=== PATIENT | male | born 1970 | race American Indian/Alaskan Native ===

== ENCOUNTER 2016-12-17 10:21 | Emergency (ER) | payer OTHER ==
[2016-12-17 10:50] LABS: Urine Drugs of Abuse Note Disclamer
[2016-12-17 10:54] LABS: Basophils % (Auto) 0.3 % (0.0-1.8); Eosinophils % (Auto) 0.7 % (0.0-4.3); Hemoglobin 14.2 gm/dl (11.8-15.2); Mean Corpuscular HGB Conc 34 % (32-34); Mean Corpuscular Hemoglobin 27 pg (28-32); Mean Corpuscular Volume 81 fl (84-94); Platelet Count 205 K/mm3 (140-440); Red Blood Count 5.17 M/mm3 (3.65-5.03); Red Cell Distribution Width 14.2 % (13.2-15.2); White Blood Count 9.4 K/mm3 (4.5-11.0)
[2016-12-17 11:02] LABS: Bilirubin,Urine NEG (Negative); Blood,Urine NEG (Negative); Ketones,Urine TR mg/dL (Negative); Leukocyte Esterase,Urine NEG (Negative); Mucus,Urine 2+ /HPF; Nitrite,Urine NEG (Negative); Protein,Urine <15 mg/dL mg/dL (Negative); Urobilinogen,Urine < 2.0 mg/dL (<2.0)
--- NOTE | 2016-12-17 11:21 | Emergency Department Report ---
ED Psych HPI - General Chief Complaint: Psych Stated Complaint: SUICIDAL Time Seen by Provider: 12/17/16 11:20 Source: EMS Mode of arrival: Ambulatory - History of Present Illness Initial Comments: The patient arrived at triage ambulatory. According to the note at triage she is "suicidal after 1 day without psych meds.". I'm unable to obtain very much information from this patient. He is largely now nonverbal. He does nod his head indicating that he is homeless. He really won't speak more than a few unintelligible words in a very low voice. MD Complaint: suicidal ideation, feels depressed -: unknown Associated Psychiatric Symptoms: other (nods yes to hallucinations) - Related Data Home Medications Medication Instructions Recorded Confirmed Last Taken Haloperidol [Haldol] 5 mg PO BID 09/11/13 09/11/13 Unknown Allergies Allergy/AdvReac Type Severity Reaction Status Date / Time shellfish derived Allergy Swelling Verified 09/11/13 13:41 ED Review of Systems ROS: Stated complaint: SUICIDAL Other details as noted in HPI Comment: Unobtainable due to pts medical conditions ED Past Medical Hx - Past Medical History Hx Psychiatric Treatment: Yes (bipolar, schizo) - Social History Smoking Status: Current Every Day Smoker Substance Use Type: None - Medications Home Medications: Home Medications Medication Instructions Recorded Confirmed Last Taken Type Haloperidol [Haldol] 5 mg PO BID 09/11/13 09/11/13 Unknown History ED Physical Exam - General Limitations: Other (psychiatric disorder) General appearance: alert, in no apparent distress - Head Head exam: Present: atraumatic, normocephalic - Eye Eye exam: Present: normal appearance. Absent: scleral icterus - ENT ENT exam: Present: mucous membranes moist - Neck Neck exam: Present: normal inspection. Absent: meningismus - Respiratory Respiratory exam: Present: normal lung sounds bilaterally. Absent: respiratory distress - Cardiovascular Cardiovascular Exam: Present: regular rate, normal rhythm. Absent: systolic murmur, diastolic murmur, rubs, gallop - GI/Abdominal GI/Abdominal exam: Present: soft, normal bowel sounds. Absent: distended, tenderness, guarding, rebound, rigid - Rectal Rectal exam: Present: deferred - Extremities Exam Extremities exam: Present: normal inspection - Back Exam Back exam: Present: normal inspection - Neurological Exam Neurological exam: Present: CN II-XII intact (as testable), other (unwilling to cooperate). Absent: motor sensory deficit - Psychiatric Psychiatric exam: Present: normal mood, flat affect - Skin Skin exam: Present: warm, dry, intact, normal color. Absent: rash ED Course - Reevaluation(s) Reevaluation #1: I discussed the patient's presentation with the mental health counselor. They recommended 1013. I am going to sign the appropriate forms. I'm told that the psychiatrist will be seeing this patient this afternoon. Therefore he will be on a 1013 and mental health hold. I'm going to prescribed Geodon both orally and IM as needed for agitation. 12/17/16 13:36 ED Medical Decision Making - Lab Data Result diagrams: 12/17/16 10:39 12/17/16 10:39 Laboratory Results - last 24 hr 12/17/16 12/17/16 10:28 10:39 WBC 9.4 RBC 5.17 H Hgb 14.2 Hct 42.0 MCV 81 L MCH 27 L MCHC 34 RDW 14.2 Plt Count 205 Lymph % (Auto) 5.2 L [place] % (Auto) 5.3 Eos % (Auto) 0.7 Baso % (Auto) 0.3 Lymph # 0.5 L [place] # 0.5 Eos # 0.1 Baso # 0.0 Seg Neutrophils % 88.5 H Seg Neutrophils # 8.3 H Urine Bilirubin Neg Urine RBC (Auto) 1.0 U Epithel Cells (Auto) 1.0 Laboratory Results - last 24 hr 12/17/16 12/17/16 12/17/16 10:28 10:28 10:39 WBC RBC Hgb Hct MCV MCH MCHC RDW Plt Count Lymph % (Auto) [place] % (Auto) Eos % (Auto) Baso % (Auto) Lymph # [place] # Eos # Baso # Seg Neutrophils % Seg Neutrophils # Sodium 142 Potassium 3.6 Chloride 100.0 Carbon Dioxide 22 Anion Gap 24 BUN 11 Creatinine 0.9 Estimated GFR > 60 BUN/Creatinine Ratio 12.22 Glucose 176 H Calcium 9.6 Urine Color Yellow Urine Turbidity Clear Urine pH 5.0 Ur Specific [place] 1.017 Urine Protein <15 mg/dl Urine Glucose (UA) Neg Urine Ketones Tr Urine Blood Neg Urine Nitrite Neg Urine Bilirubin Neg Urine Urobilinogen < 2.0 Ur Leukocyte Esterase Neg Urine WBC (Auto) 3.0 Urine RBC (Auto) 1.0 U Epithel Cells (Auto) 1.0 Urine Mucus 2+ Urine Opiates Screen Presumptive negative Urine Methadone Screen Presumptive negative Ur Barbiturates Screen Presumptive negative Ur Phencyclidine Scrn Presumptive negative Ur Amphetamines Screen Presumptive negative U Benzodiazepines Scrn Presumptive negative Urine Cocaine Screen Presumptive negative U Marijuana (THC) Screen Presumptive negative Drugs of Abuse Note Disclamer Plasma/Serum Alcohol 12/17/16 12/17/16 10:39 10:39 WBC 9.4 RBC 5.17 H Hgb 14.2 Hct 42.0 MCV 81 L MCH 27 L MCHC 34 RDW 14.2 Plt Count 205 Lymph % (Auto) 5.2 L [place] % (Auto) 5.3 Eos % (Auto) 0.7 Baso % (Auto) 0.3 Lymph # 0.5 L [place] # 0.5 Eos # 0.1 Baso # 0.0 Seg Neutrophils % 88.5 H Seg Neutrophils # 8.3 H Sodium Potassium Chloride Carbon Dioxide Anion Gap BUN Creatinine Estimated GFR BUN/Creatinine Ratio Glucose Calcium Urine Color Urine Turbidity Urine pH Ur Specific [place] Urine Protein Urine Glucose (UA) Urine Ketones Urine Blood Urine Nitrite Urine Bilirubin Urine Urobilinogen Ur Leukocyte Esterase Urine WBC (Auto) Urine RBC (Auto) U Epithel Cells (Auto) Urine Mucus Urine Opiates Screen Urine Methadone Screen Ur Barbiturates Screen Ur Phencyclidine Scrn Ur Amphetamines Screen U Benzodiazepines Scrn Urine Cocaine Screen U Marijuana (THC) Screen Drugs of Abuse Note Plasma/Serum Alcohol < 0.01 Critical care attestation.: If time is entered above; I have spent that time in minutes in the direct care of this critically ill patient, excluding procedure time. 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
[2016-12-17 11:37] LABS: Anion Gap 24 mmol/L; BUN/Creatinine Ratio 12.22; Blood Urea Nitrogen 11 mg/dL (9-20); Calcium 9.6 mg/dL (8.4-10.2); Carbon Dioxide 22 mmol/L (22-30); Glucose 176 mg/dL (75-100); Potassium 3.6 mmol/L (3.6-5.0); Sodium 142 mmol/L (137-145)
[2016-12-17] MEDS ORDERED: TYLENOL PO PRN (13:39)
[2016-12-17] MEDS ORDERED: MILK OF MAGNESIA PO PRN (13:39)
[2016-12-17] MEDS ORDERED: GEODON IM PRN (13:39)
[2016-12-17] MEDS ORDERED: ALUM-MAG HYDROX-SIMETH 200-200-20MG/5ML PO PRN (13:39)
[2016-12-17] MEDS: GEODON PO SCH ×2 (16:24→22:01)
[2016-12-18] MEDS: GEODON PO SCH ×2 (01:02→12:41)
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
[2016-12-18] MEDS: HALDOL PO SCH (16:55)
[2016-12-18] MEDS: ATIVAN PO SCH ×2 (16:55→20:14)
[2016-12-19] MEDS: HALDOL PO SCH ×2 (00:30→11:36)
[2016-12-19] MEDS: ATIVAN PO SCH ×3 (09:56→20:15)
--- NOTE | 2016-12-19 13:26 | Progress Note ---
Subjective - Reason for Consult Reason for consult: withdrawn and depressed, non-verbal Mental Status Exam - Vital signs Last Vital Signs Temp 98.0 F 12/19/16 08:53 Pulse 88 12/19/16 08:53 Resp 16 12/19/16 08:55 BP 111/68 12/19/16 08:53 Pulse Ox 99 12/19/16 08:55 Assessment and Plan On clinical examination today, patient was fairly withdrawn and sedated. Patient refused to be interviewed and pulled the sheets over his head upon approach. MENTAL STATUS EXAM: General Appearance: Malodorous and disheveled in hospital gown Sensorium/Consciousness: Minimally responsive, still sedated Eye Contact: limited Attitude / Behavior: Guarded and uncooperative Psychomotor & Musculoskeletal Activity: Cannot assess Mood: Withdrawn Affect: Blunted Speech / Language: Could not assess Thought Processes: Could not assess Thought Content: Unable to report Perception: Could not appropriately assess Orientation: person Judgment What would you do if you smelled smoke in a crowded movie theater?: Limited Insight: poor Intelligence Vocabulary, general fund of knowledge, educational level : Below Average Capacity of ADLs: Dependent INITIAL PLAN OF CARE AND TREATMENT GOALS: Continue haloperidol 5 mg every 12 hours CPK was mildly elevated but not clinically significant. No intervention needed at this current time continue lorazepam 1 mg po tid and reassess clinical presentation
[2016-12-20] MEDS: HALDOL PO SCH (00:30)
[2016-12-20] MEDS: ATIVAN PO SCH ×2 (08:00→21:45)
--- NOTE | 2016-12-20 13:57 | Progress Note ---
Subjective - Reason for Consult Reason for consult: evaluate the need to transfer to inpatient psychiatic hospital Mental Status Exam - Vital signs Last Vital Signs Temp 98.3 F 12/19/16 22:00 Pulse 97 H 12/19/16 22:00 Resp 18 12/19/16 22:00 BP 126/89 12/19/16 22:00 Pulse Ox 97 12/19/16 22:00 Assessment and Plan On clinical examination today, patient was fairly withdrawn , much less sedated. Patient was attempting to sleep but was easily arousable and had a brief conversation 2 today. An initial conversation., The patient was reticent to be discharged to a [place] facility. At the current time, patient notes that his mood is so withdrawn and that he would like to have his mood improved prior to discharge. On a subsequent conversation, patient is amenable to discharging to a [place] health care facility if necessary; however, patient is still fairly withdrawn and does not believe this is the best treatment option for him at the current moment. Therefore, we will continue to engage in referring the patient to inpatient psychiatric services to better manage his current presentation. Nevertheless, patient improves markedly over the next 24 hours it is feasible that he may be discharged to a [place] health care facility. MENTAL STATUS EXAM: General Appearance: Malodorous and disheveled in hospital gown Sensorium/Consciousness: Minimally responsive Eye Contact: limited Attitude / Behavior: Guarded, but cooperative Psychomotor & Musculoskeletal Activity: WNL Mood: Withdrawn Affect: Constricted Speech / Language: WNL Thought Processes: more organized Thought Content: still some hopelessness Perception: no AHV noted Orientation: person, place, situation Judgment What would you do if you smelled smoke in a crowded movie theater?: Limited Insight: fair Intelligence Vocabulary, general fund of knowledge, educational level: Average Capacity of ADLs: Dependent INITIAL PLAN OF CARE AND TREATMENT GOALS: Continue haloperidol 5 mg every 12 hours continue lorazepam 1 mg po tid and reassess clinical presentation Continue the referral process for inpatient psychiatric hospitalization
[2016-12-21] MEDS: HALDOL PO SCH ×3 (03:20→23:52)
[2016-12-21] MEDS: ATIVAN PO SCH ×3 (11:16→20:28)
--- NOTE | 2016-12-21 12:33 | Progress Note ---
Subjective - Reason for Consult Reason for consult: depressed Mental Status Exam - Vital signs Last Vital Signs Temp 98.2 F 12/21/16 08:27 Pulse 79 12/21/16 08:27 Resp 18 12/21/16 08:27 BP 119/87 12/21/16 08:27 Pulse Ox 98 12/21/16 08:27 Assessment and Plan On clinical examination today, and somewhat withdrawn. Patient was asleep upon initial clinical approach. Patient is report that he is doing somewhat better. Auditory hallucinations have decreased. Patient is currently homeless and having difficulty with idea of going to detention upon discharge. At the current time were attending [facility] inpatient placement for the patient if possible. MENTAL STATUS EXAM: General Appearance: Malodorous and disheveled in hospital gown Sensorium/Consciousness: Minimally responsive Eye Contact: limited Attitude / Behavior: Guarded, but cooperative Psychomotor & Musculoskeletal Activity: WNL Mood: Withdrawn Affect: Constricted Speech / Language: WNL Thought Processes: more organized Thought Content: still somewhat hopelessness Perception: no AHV noted Orientation: person, place, situation Judgment What would you do if you smelled smoke in a crowded movie theater?: Limited Insight: fair Intelligence Vocabulary, general fund of knowledge, educational level: Average Capacity of ADLs: Independent INITIAL PLAN OF CARE AND TREATMENT GOALS: Continue haloperidol 5 mg every 12 hours continue lorazepam 1 mg po tid Continue the referral process for inpatient psychiatric hospitalization Possible referral to detention tomorrow if his progress continues
[2016-12-22] MEDS: ATIVAN PO SCH ×3 (11:27→22:00)
[2016-12-22] MEDS: HALDOL PO SCH (13:37)
[2016-12-23] MEDS: ATIVAN PO SCH ×3 (09:20→23:56)
--- NOTE | 2016-12-23 12:44 | Progress Note ---
Subjective - Reason for Consult Reason for consult: depression Mental Status Exam - Vital signs Last Vital Signs Temp 98.4 F 12/23/16 08:00 Pulse 69 12/23/16 08:00 Resp 16 12/23/16 08:00 BP 126/84 12/23/16 08:00 Pulse Ox 100 12/23/16 08:00 Assessment and Plan On clinical examination today, and somewhat withdrawn. Again today, the patient notes that he would rather go to inpatient psychiatric hospitalization rather than prison. Patient has no firm plan of how to address his psychiatric symptoms with follow-up care due to him being homeless. MENTAL STATUS EXAM: General Appearance: Malodorous and disheveled in hospital gown Sensorium/Consciousness: Minimally responsive Eye Contact: limited Attitude / Behavior: Guarded, but cooperative Psychomotor & Musculoskeletal Activity: WNL Mood: Withdrawn Affect: Constricted Speech / Language: WNL Thought Processes: more organized Thought Content: still somewhat hopelessness Perception: no AHV noted Orientation: person, place, situation Judgment What would you do if you smelled smoke in a crowded movie theater?: Limited Insight: fair Intelligence Vocabulary, general fund of knowledge, educational level: Average Capacity of ADLs: Independent INITIAL PLAN OF CARE AND TREATMENT GOALS: Patient has been accepted to inpatient psychiatric hospital and will likely be transported there today Continue haloperidol 5 mg every 12 hours continue lorazepam 1 mg po tid Continue the referral process for inpatient psychiatric hospitalization
[2016-12-23] MEDS: HALDOL PO SCH ×2 (12:51→15:45)
[2016-12-24] MEDS: HALDOL PO SCH ×2 (06:01→13:32)
[2016-12-24] MEDS: ATIVAN PO SCH ×2 (08:19→13:39)
[2016-12-24 18:49] VITALS: BP 138/84
== END 2016-12-24 18:51 ==
LOC: EEVIPCON 10:21 → ED 10:21
DX: F20.2 Catatonic schizophrenia (principal); F31.9 Bipolar disorder, unspecified; F17.200 Nicotine dependence, unspecified, uncomplicated; Z79.899 Other long term (current) drug therapy; Z91.013 Allergy to seafood
CPT/HCPCS: 36415; 80048; 80307; 81001; 82550; 85025; 96372; 99285; G0480; J3486; 80320

== ENCOUNTER 2017-02-07 11:13 | Emergency (ER) | payer OTHER ==
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
[2017-02-07 11:56] LABS: Urine Drugs of Abuse Note Disclamer
[2017-02-07 12:01] LABS: Basophils % (Auto) 1.2 % (0.0-1.8); Eosinophils % (Auto) 3.4 % (0.0-4.3); Hematocrit 38.4 % (35.5-45.6); Hemoglobin 12.8 gm/dl (11.8-15.2); Mean Corpuscular HGB Conc 34 % (32-34); Mean Corpuscular Hemoglobin 27 pg (28-32); Mean Corpuscular Volume 81 fl (84-94); Platelet Count 148 K/mm3 (140-440); Red Blood Count 4.75 M/mm3 (3.65-5.03); Red Cell Distribution Width 15.3 % (13.2-15.2); White Blood Count 3.8 K/mm3 (4.5-11.0)
[2017-02-07] MEDS ORDERED: NACL 0.9% 1000 ML 1,000 ML IV ONE (12:01)
--- NOTE | 2017-02-07 12:02 | Emergency Department Report ---
ED Psych HPI - General Chief Complaint: Psych Stated Complaint: JASON KEENAN Time Seen by Provider: 02/07/17 11:22 Source: patient Mode of arrival: Ambulatory - History of Present Illness Initial Comments: 46-year-old male with a history of bipolar and schizophrenia here with complaint of auditory hallucinations telling him to harm himself. Patient is currently living in transitional housing and wandered off this weekend. They were unable to find him. He states that his voices told him to get naked and wandering the streets and tried to hit by car. States he has been intermittently taking his meds. No other complaints. MD Complaint: suicidal ideation -: Gradual Associated Psychiatric Symptoms: suicidal ideation, auditory hallucinations Quality: constant Improves With: none Worsens With: none Treatments Prior to Arrival: none - Related Data Home Medications Medication Instructions Recorded Confirmed Last Taken Haloperidol [Haldol] 5 mg PO BID 09/11/13 12/18/16 Unknown Allergies Allergy/AdvReac Type Severity Reaction Status Date / Time shellfish derived Allergy Swelling Verified 09/11/13 13:41 ED Review of Systems ROS: Stated complaint: JASON KEENAN Other details as noted in HPI Comment: All other systems reviewed and negative Constitutional: denies: chills, fever Eyes: denies: eye pain, eye discharge, vision change ENT: denies: ear pain, throat pain Respiratory: denies: cough, shortness of breath, wheezing Cardiovascular: denies: chest pain, palpitations Endocrine: no symptoms reported Gastrointestinal: denies: abdominal pain, nausea, diarrhea Genitourinary: denies: urgency, dysuria Musculoskeletal: denies: back pain, joint swelling, arthralgia Skin: denies: rash, lesions Neurological: denies: headache, weakness, paresthesias Psychiatric: auditory hallucinations, suicidal thoughts. denies: anxiety, depression Hematological/Lymphatic: denies: easy bleeding, easy bruising ED Past Medical Hx - Past Medical History Previous Medical History?: Yes Hx Psychiatric Treatment: Yes (bipolar, schizo) - Surgical History Past Surgical History?: No - Family History Family history: no significant - Social History Smoking Status: Current Some Day Smoker Substance Use Type: Alcohol - Medications Home Medications: Home Medications Medication Instructions Recorded Confirmed Last Taken Type Haloperidol [Haldol] 5 mg PO BID 09/11/13 12/18/16 Unknown History ED Physical Exam - General Limitations: No Limitations General appearance: alert, in no apparent distress - Head Head exam: Present: atraumatic, normocephalic - Eye Eye exam: Present: normal appearance - ENT ENT exam: Present: mucous membranes dry - Neck Neck exam: Present: normal inspection. Absent: lymphadenopathy - Respiratory Respiratory exam: Present: normal lung sounds bilaterally. Absent: respiratory distress - Cardiovascular Cardiovascular Exam: Present: regular rate, normal rhythm. Absent: systolic murmur, diastolic murmur, rubs, gallop - GI/Abdominal GI/Abdominal exam: Present: soft, normal bowel sounds - Rectal Rectal exam: Present: deferred - Extremities Exam Extremities exam: Present: normal inspection, normal capillary refill - Back Exam Back exam: Present: normal inspection. Absent: CVA tenderness (R), CVA tenderness (L), muscle spasm - Neurological Exam Neurological exam: Present: alert, oriented X3 - Psychiatric Psychiatric exam: Present: normal affect, normal mood - Skin Skin exam: Present: warm, dry, intact, normal color. Absent: rash ED Course Vital Signs 02/07/17 11:22 Temperature 98.6 F Pulse Rate 142 H Respiratory 16 Rate Blood Pressure 122/82 O2 Sat by Pulse 97 Oximetry ED Medical Decision Making - Lab Data Result diagrams: 02/07/17 11:38 02/07/17 11:38 Laboratory Results - last 24 hr 02/07/17 02/07/17 02/07/17 11:38 11:38 11:38 WBC 3.8 L RBC 4.75 Hgb 12.8 Hct 38.4 MCV 81 L MCH 27 L MCHC 34 RDW 15.3 H Plt Count 148 Lymph % (Auto) 27.2 Camas % (Auto) 12.3 H Eos % (Auto) 3.4 Baso % (Auto) 1.2 Lymph # 1.0 L Camas # 0.5 Eos # 0.1 Baso # 0.0 Seg Neutrophils % 55.9 Seg Neutrophils # 2.1 Sodium 140 Potassium 4.1 Chloride 101.3 Carbon Dioxide 25 Anion Gap 18 BUN 10 Creatinine 0.7 L Estimated GFR > 60 BUN/Creatinine Ratio 14.28 Glucose 106 H Calcium 8.9 Total Bilirubin 0.60 AST 20 ALT 10 Alkaline Phosphatase 47 Total Protein 7.1 Albumin 4.2 Albumin/Globulin Ratio 1.4 Urine Color Urine Turbidity Urine pH Ur Specific Frontier Urine Protein Urine Glucose (UA) Urine Ketones Urine Blood Urine Nitrite Urine Bilirubin Urine Urobilinogen Ur Leukocyte Esterase Urine WBC (Auto) Urine RBC (Auto) U Epithel Cells (Auto) Urine Opiates Screen Urine Methadone Screen Acetaminophen < 15.0 Ur Barbiturates Screen Ur Phencyclidine Scrn Ur Amphetamines Screen U Benzodiazepines Scrn Urine Cocaine Screen U Marijuana (THC) Screen Drugs of Abuse Note Plasma/Serum Alcohol 02/07/17 02/07/17 02/07/17 11:38 11:51 11:51 WBC RBC Hgb Hct MCV MCH MCHC RDW Plt Count Lymph % (Auto) Camas % (Auto) Eos % (Auto) Baso % (Auto) Lymph # Camas # Eos # Baso # Seg Neutrophils % Seg Neutrophils # Sodium Potassium Chloride Carbon Dioxide Anion Gap BUN Creatinine Estimated GFR BUN/Creatinine Ratio Glucose Calcium Total Bilirubin AST ALT Alkaline Phosphatase Total Protein Albumin Albumin/Globulin Ratio Urine Color Straw Urine Turbidity Clear Urine pH 6.0 Ur Specific Frontier 1.004 Urine Protein <15 mg/dl Urine Glucose (UA) Neg Urine Ketones Neg Urine Blood Neg Urine Nitrite Neg Urine Bilirubin Neg Urine Urobilinogen < 2.0 Ur Leukocyte Esterase Neg Urine WBC (Auto) 1.0 Urine RBC (Auto) 1.0 U Epithel Cells (Auto) < 1.0 Urine Opiates Screen Presumptive negative Urine Methadone Screen Presumptive negative Acetaminophen Ur Barbiturates Screen Presumptive negative Ur Phencyclidine Scrn Presumptive negative Ur Amphetamines Screen Presumptive negative U Benzodiazepines Scrn Presumptive negative Urine Cocaine Screen Presumptive negative U Marijuana (THC) Screen Presumptive negative Drugs of Abuse Note Disclamer Plasma/Serum Alcohol < 0.01 - Medical Decision Making 46-year-old male with a history of schizoaffective disorder here with complaint of auditory hallucinations and telling him to harm himself. He is an unpleasant state of mind however given his history he will need to be 1013. Plan to medically clear him with labs. His initial triage vitals of heart rate 140 are now improved as his heart rate is in the 90s on my assessment. He has dry mucous membranes and is likely dehydrated. Plan to treat with IV fluids and will reassess. Patient labs are unremarkable. Plan to have the patient evaluated by psychiatry. Portions of this chart were dictated with dictation software. There may be dictation errors contained within this note. Critical care attestation.: If time is entered above; I have spent that time in minutes in the direct care of this critically ill patient, excluding procedure time. ED Disposition Clinical Impression: Bipolar 1 disorder, depressed, Suicidal ideation Disposition: DC/TX-65 PSY HOSP/PSY UNIT Is pt being admited?: No Condition: Stable
[2017-02-07 12:11] LABS: Alanine Aminotransferase 10 units/L (7-56); Albumin 4.2 g/dL (3.9-5); Albumin/Globulin Ratio 1.4 %; Alkaline Phosphatase 47 units/L (35-129); Anion Gap 18 mmol/L; BUN/Creatinine Ratio 14.28; Blood Urea Nitrogen 10 mg/dL (9-20); Calcium 8.9 mg/dL (8.4-10.2); Carbon Dioxide 25 mmol/L (22-30); Chloride 101.3 mmol/L (98-107); Glucose 106 mg/dL (75-100); Potassium 4.1 mmol/L (3.6-5.0); Sodium 140 mmol/L (137-145); Total Protein 7.1 g/dL (6.3-8.2)
[2017-02-07 12:13] LABS: Bilirubin,Urine NEG (Negative); Blood,Urine NEG (Negative); Ketones,Urine NEG (Negative); Leukocyte Esterase,Urine NEG (Negative); Nitrite,Urine NEG (Negative); Protein,Urine <15 mg/dL mg/dL (Negative); Urobilinogen,Urine < 2.0 mg/dL (<2.0)
[2017-02-07] MEDS ORDERED: NACL 0.9% 1000 ML 1,000 ML ONE (16:57)
[2017-02-08] MEDS: ATIVAN PO PRN ×2 (00:46→16:53)
--- NOTE | 2017-02-08 12:10 | Consultation ---
History of Present Illness - Reason for Consult Consult date: 02/08/17 Reason for consult: Mental Health Evaluation Requesting physician: CHARLY MCCAIN - Chief Complaint Chief complaint: "What you want" - History of Present Psychiatric Illness 46-year-old male with a history of bipolar and schizophrenia here with complaint of auditory hallucinations telling him to harm himself. Today patient is cooperative during assessment. He stated that he don't remember what he said during triage. He stated hearing voices today. He could not tell me what the voices are saying. After I asked him a couple questions, he became very quiet possibly responding to some type of stimuli. He did state that he receive the invega injection monthly. He also, stated that he drink alcohol (etoh) daily. He stated drinking since he was 16 yrs old. He reported his last drink was within the last 2 days. During the conversation patient was restless. He denies denies SI/HI's, VH's, and depression. He denies recreational drug use. UDS is negative. Medications and Allergies Allergies Allergy/AdvReac Type Severity Reaction Status Date / Time shellfish derived Allergy Swelling Verified 09/11/13 13:41 Home Medications Medication Instructions Recorded Confirmed Last Taken Type Haloperidol [Haldol] 5 mg PO BID 09/11/13 12/18/16 Unknown History Active Meds: Active Medications Lorazepam (Ativan) 2 mg PO Q1HR PRN PRN Reason: CIWA-Ar 8-15 Lorazepam (Ativan) 4 mg PO Q1HR PRN PRN Reason: CIWA-Ar 16-25 Last Admin: 02/08/17 00:46 Dose: 4 mg Past psychiatric history - Past Medical History Past Medical History: No medical history Past Surgical History: No surgical history - past Psychiatric treatment and history Psych: Schizophrenia psychiatric treatment history: Multiple inpatient psy settings. Denies a fam psy hx. - Social History Social history: other (Reside at a jail) Mental Status Exam - Vital signs Last Vital Signs Temp 98.2 F 02/08/17 08:02 Pulse 88 02/08/17 08:02 Resp 20 02/08/17 08:02 BP 165/89 02/08/17 08:02 Pulse Ox 100 02/08/17 08:02 - Exam Narrative exam: ROS: (+) Psychosis MSE: Appearance: cooperative, anxious Behavior: regular eye contact Speech: loud rate and tone Mood: "okay" Affect: labile Thought Process: tangential Thought Content: admit AH's, disorganized Motor Activity: sitting up Cognition: A/Ox 3 Insight: poor Judgment: poor Results Result Diagrams: 02/07/17 11:38 02/07/17 11:38 Abnormal lab results 02/07/17 Range/Units 11:38 Creatinine 0.7 L (0.8-1.5) mg/dL Glucose 106 H (75-100) mg/dL All other labs normal. Assessment and Plan Assessment and plan: Impression: Historical Dx: Schizophrenia. Patient possibly experiencing anxiety. Alcohol Use DO. Today patient is cooperative during assessment. Patient experiencing AH's. No acute withdrawals noted. DDx: R/O Bipolar, Schizoaffective DO Recommendation/Plan: Contjnue 1013 with placement to psy services. Start Buspar 10 mg PO BID for anxiety. Use CIWA when indicated. Patient received [facility]ga injection [facility] ([facility])
[2017-02-08] MEDS: BUSPAR PO SCH ×2 (14:35→23:03)
[2017-02-09] MEDS: BUSPAR PO SCH ×2 (09:29→22:01)
--- NOTE | 2017-02-09 14:17 | Progress Note ---
Subjective - Reason for Consult Consult date: 02/09/17 Reason for consult: follow up - Chief Complaint Chief complaint: "I think I'm marci alvarez" 46-year-old male with a history of bipolar and schizophrenia here with complaint of auditory hallucinations telling him to harm himself. He is in a padded room. Today patient is cooperative during assessment but laughing loudly and inappropriately. He discussed how he thinks he is marci alvarez and stephanie rabbit sometimes. He made several statements about voices telling him "black yard rigger talking down to me." He became confrontational with a network security officer. Mental Status Exam - Vital signs Last Vital Signs Temp 97.8 F 02/08/17 20:40 Pulse 100 H 02/08/17 20:40 Resp 16 02/09/17 08:03 BP 168/84 02/08/17 20:40 Pulse Ox 99 02/08/17 20:40 Assessment and Plan Narrative exam: ROS: (+) Psychosis MSE: Appearance: cooperative, anxious Behavior: regular eye contact Speech: loud rate and tone Mood: "okay" Affect: labile Thought Process: tangential Thought Content: denies suicidal ideation. grandiose, paranoia Perception: auditory hallucinations. Motor Activity: sitting up Cognition: A/Ox 3 Insight: poor Judgment: poor Assessment and plan: Impression: Historical Dx: Schizophrenia. Patient possibly experiencing anxiety. Alcohol Use DO. Today patient is cooperative during assessment. Patient experiencing AH's. No acute withdrawals noted. DDx: R/O Bipolar, Schizoaffective DO Recommendation/Plan: Continue 1013 with placement to psy services. Continue Buspar 10 mg PO BID for anxiety. Use CIWA when indicated. Patient received [facility]ga injection [facility] ago [facility] ([facility]) Depakote DR 500mg bid added for agitation and manic symptoms
[2017-02-09] MEDS: ATIVAN PO PRN (21:23)
[2017-02-10] MEDS: ATIVAN PO PRN (04:13)
[2017-02-10] MEDS: BUSPAR PO SCH ×2 (10:46→22:05)
--- NOTE | 2017-02-10 11:49 | Progress Note ---
Subjective - Reason for Consult Consult date: 02/10/17 Reason for consult: Psychiatry Follow-up - Chief Complaint Chief complaint: "Hello" 46-year-old male with a history of bipolar and schizophrenia here with complaint of auditory hallucinations telling him to harm himself. Today patient is calm and cooperative during the assessment. He was in the padded room, because of behavioral disturbances. He stated that he want to watch TV and agreed to behave when let out of the padded room. He was not laughing out loud or being inappropriate during our discussion. He denies SI/HI's and AVH's. He denies any side effects of his medications. Mental Status Exam - Vital signs Last Vital Signs Temp 97.8 F 02/08/17 20:40 Pulse 100 H 02/08/17 20:40 Resp 16 02/09/17 08:03 BP 168/84 02/08/17 20:40 Pulse Ox 99 02/08/17 20:40 - Exam Narrative exam: MSE: Appearance: calm, cooperative Behavior: regular eye contact Speech: regular rate and tone Mood: "okay" Affect: congruent to mood Thought Process: circumstantial Thought Content: denies SI/HI's and AVH's, disorganized Motor Activity: ambulatory Cognition: A/Ox 3 Insight: limited Judgment: limited Assessment and Plan Impression: Historical Dx: Schizophrenia. Patient possibly experiencing anxiety. Alcohol Use DO. Today patient is cooperative during assessment. Recommendation/Plan: Continue 1013 with placement to psy services. Continue Buspar 10 mg PO BID for anxiety and Depakote 500 mg BID for mood. Use CIWA when indicated. Patient received [facility]ga injection [facility] ([facility] [place] ordered for the AM.
[2017-02-11] MEDS: BUSPAR PO SCH ×2 (10:13→22:10)
--- NOTE | 2017-02-11 16:13 | Progress Note ---
Subjective - Reason for Consult Consult date: 02/11/17 Reason for consult: follow up - Chief Complaint Chief complaint: "I'm good." 46-year-old male with a history of bipolar and schizophrenia here with complaint of auditory hallucinations telling him to harm himself. Today patient is calm and cooperative during the assessment. He continues to be in the padded room, because of behavioral disturbances. He stated that he want to watch TV and agreed to behave when let out of the padded room. Staff report he antagonized his peers when he had a trial out of his room. He was not laughing out loud or being inappropriate during our discussion but afterward he was yelling and stated he was signing when approached. He denies SI/HI's and AVH's. He denies any side effects of his medications. Mental Status Exam - Vital signs Last Vital Signs Temp 98 F 02/11/17 11:59 Pulse 76 02/11/17 11:59 Resp 20 02/11/17 11:59 BP 158/91 02/11/17 11:59 Pulse Ox 99 02/11/17 11:59 Assessment and Plan Narrative exam: ROS: (+) Psychosis MSE: Appearance: cooperative, anxious Behavior: regular eye contact Speech: loud rate and tone Mood: manic Affect: labile Thought Process: tangential Thought Content: denies suicidal ideation. grandiose, paranoia Perception: auditory hallucinations. responding to internal stimuli Motor Activity: hyperkinetic Cognition: A/Ox 3 Insight: poor Judgment: poor Assessment and plan: Impression: Historical Dx: Schizophrenia. Patient experiencing AH's and has intermittent behavioral disturbances. He complains of feeling institutionalized.. No acute withdrawals noted. DDx: R/O Bipolar, Schizoaffective DO Recommendation/Plan: Continue 1013 with placement to psy services. Continue Buspar 10 mg PO BID for anxiety. Use CIWA when indicated. Patient received Invega injection 2 weeks ago from [facility] ([facility]) Depakote DR 500mg bid added for agitation and manic symptoms and level is therapeutic Zyprexa 5mg hs added to address psychotic symptoms not addressed by Invega
[2017-02-11 18:56] LABS: Hematocrit 40.2 % (35.5-45.6); Hemoglobin 13.1 gm/dl (11.8-15.2); Mean Corpuscular HGB Conc 33 % (32-34); Mean Corpuscular Hemoglobin 27 pg (28-32); Mean Corpuscular Volume 83 fl (84-94); Platelet Count 162 K/mm3 (140-440); Red Blood Count 4.84 M/mm3 (3.65-5.03); Red Cell Distribution Width 15.9 % (13.2-15.2); White Blood Count 5.2 K/mm3 (4.5-11.0)
[2017-02-12] MEDS: BUSPAR PO SCH ×2 (10:48→22:19)
--- NOTE | 2017-02-12 14:28 | Progress Note ---
Subjective - Reason for Consult Consult date: 02/12/17 Reason for consult: follow up - Chief Complaint Chief complaint: "I'm scared of the security guards." 46-year-old male with a history of bipolar and schizophrenia here with complaint of auditory hallucinations telling him to harm himself. Today patient is calm and cooperative during the assessment. He continues to be in the padded room, because of behavioral disturbances.He intermittently yells and responds to internal stimuli but denies hallucinations when discussed. He denies SI/HI's and AVH's. He denies any side effects of his medications. He reports receiving Invega Sustenna 2 weeks ago through [facility] and believes it may wear off too soon. Mental Status Exam - Vital signs Last Vital Signs Temp 98.9 F 02/11/17 22:00 Pulse 98 H 02/11/17 22:00 Resp 18 02/11/17 22:00 BP 148/86 02/11/17 22:00 Pulse Ox 98 02/11/17 22:00 Assessment and Plan Narrative exam: ROS: (+) Psychosis MSE: Appearance: cooperative, anxious Behavior: regular eye contact Speech: loud rate and tone Mood: manic Affect: labile Thought Process: tangential Thought Content: denies suicidal ideation. grandiose, paranoia Perception: auditory hallucinations. responding to internal stimuli Motor Activity: hyperkinetic Cognition: A/Ox 3 Insight: poor Judgment: poor Assessment and plan: Impression: Historical Dx: Schizophrenia. Patient experiencing AH's and has intermittent behavioral disturbances. DDx: R/O Bipolar, Schizoaffective DO Recommendation/Plan: Continue 1013 with placement to psy services. Continue Buspar 10 mg PO BID for anxiety. Patient received Invega injection 2 [facility] ago from [facility] ([facility])- verify last dose when the program is open Tuesday. Depakote DR 500mg bid added for agitation and manic symptoms and level is therapeutic Zyprexa 5mg hs added yesterday to address psychotic symptoms not addressed by Invega
[2017-02-12] MEDS: ATIVAN PO PRN (22:19)
[2017-02-13] MEDS ORDERED: GEODON IM ONE (10:07)
[2017-02-13] MEDS: BUSPAR PO SCH (10:46)
[2017-02-13] MEDS: ATIVAN PO PRN (10:50)
[2017-02-13 15:54] VITALS: BP 130/86
== END 2017-02-13 16:08 ==
LOC: EEVIPCON 11:13 → ED 11:13
DX: F31.9 Bipolar disorder, unspecified (principal); F32.9 Major depressive disorder, single episode, unspecified; R45.851 Suicidal ideations; F17.200 Nicotine dependence, unspecified, uncomplicated; F20.9 Schizophrenia, unspecified
CPT/HCPCS: 36415; 80053; 80164; 80307; 81001; 85025; 96372; 99285; G0480; J3486; J7030; 80320

== ENCOUNTER 2017-05-30 11:49 | Emergency (ER) | payer MEDICARE, OTHER ==
[2017-05-30 12:57] VITALS: BP 115/80
[2017-05-30 14:22] LABS: Basophils % (Auto) 0.7 % (0.0-1.8); Eosinophils % (Auto) 0.5 % (0.0-4.3); Hemoglobin 13.7 gm/dl (11.8-15.2); Mean Corpuscular HGB Conc 33 % (32-34); Mean Corpuscular Hemoglobin 27 pg (28-32); Mean Corpuscular Volume 81 fl (84-94); Platelet Count 185 K/mm3 (140-440); Red Blood Count 5.05 M/mm3 (3.65-5.03); Red Cell Distribution Width 16.2 % (13.2-15.2); White Blood Count 5.4 K/mm3 (4.5-11.0)
[2017-05-30 14:30] LABS: Anion Gap 21 mmol/L; BUN/Creatinine Ratio 11; Blood Urea Nitrogen 9 mg/dL (9-20); Calcium 9.4 mg/dL (8.4-10.2); Carbon Dioxide 21 mmol/L (22-30); Chloride 94.7 mmol/L (98-107); Glucose 95 mg/dL (75-100); Potassium 4.1 mmol/L (3.6-5.0); Sodium 133 mmol/L (137-145)
[2017-05-30 14:49] LABS: Urine Drugs of Abuse Note Disclamer
[2017-05-30 15:05] LABS: Bilirubin,Urine NEG (Negative); Blood,Urine SM (Negative); Ketones,Urine 20 mg/dL (Negative); Leukocyte Esterase,Urine NEG (Negative); Mucus,Urine FEW /HPF; Nitrite,Urine NEG (Negative); Protein,Urine <15 mg/dL mg/dL (Negative); Urobilinogen,Urine < 2.0 mg/dL (<2.0)
== END 2017-05-30 22:50 | disposition left against medical advice (07) ==
LOC: EEVIPCON 11:49 → ED 11:49
DX: F29 Unspecified psychosis not due to a substance or known physiological condition (principal); R45.6 Violent behavior; Z53.21 Procedure and treatment not carried out due to patient leaving prior to being seen by health care provider
CPT/HCPCS: 36415; 80048; 80307; 81001; 85025; G0480; 80320

== ENCOUNTER 2017-07-09 23:45 | Emergency (ER) | payer OTHER ==
[2017-07-10 00:15] LABS: Bilirubin,Urine NEG (Negative); Blood,Urine SM (Negative); Color,Urine Yellow (Yellow); Mucus,Urine FEW /HPF; Nitrite,Urine NEG (Negative); Protein,Urine <15 mg/dL mg/dL (Negative); WBC,Urine < 1.0 /HPF (0.0-6.0)
[2017-07-10 00:23] LABS: Amphetamine Screen,Urine PRESUMPTIVE NEGATIVE; Benzodiazepines Screen,Urine PRESUMPTIVE NEGATIVE; Cannabinoid Screen,Urine PRESUMPTIVE NEGATIVE; Cocaine Screen,Urine PRESUMPTIVE NEGATIVE; Methadone Screen,Urine PRESUMPTIVE NEGATIVE; Opiate Screen,Urine PRESUMPTIVE NEGATIVE
[2017-07-10 00:26] LABS: Basophils % (Auto) 0.6 % (0.0-1.8); Eosinophils % (Auto) 0.3 % (0.0-4.3); Hematocrit 40.7 % (35.5-45.6); Hemoglobin 13.5 gm/dl (11.8-15.2); Lymphocytes # (Auto) 0.8 K/mm3 (1.2-5.4); Lymphocytes % (Auto) 9.5 % (13.4-35.0); Mean Corpuscular HGB Conc 33 % (32-34); Mean Corpuscular Hemoglobin 27 pg (28-32); Mean Corpuscular Volume 81 fl (84-94); Monocytes % (Auto) 11.9 % (0.0-7.3); Platelet Count 164 K/mm3 (140-440); Red Blood Count 5.01 M/mm3 (3.65-5.03); Red Cell Distribution Width 16.1 % (13.2-15.2)
[2017-07-10 00:37] LABS: BUN/Creatinine Ratio 20; Blood Urea Nitrogen 12 mg/dL (9-20); Calcium 9.1 mg/dL (8.4-10.2); Hemolysis Index 14
--- NOTE | 2017-07-10 05:29 | Emergency Department Report ---
ED Psych HPI - General Chief Complaint: Psych Stated Complaint: MH Time Seen by Provider: 07/10/17 05:28 Source: patient Mode of arrival: Ambulatory - History of Present Illness Initial Comments: Patient is a 46-year-old male with a past medical history of hernia who is presenting with suicidal ideations. Patient states he has no plan at this time. Patient does state that he has command hallucinations that are telling him that "he is not going to be here tomorrow". Patient did denies homicidal ideations. Patient states that he has not had any drugs or alcohol at this time. - Related Data Home Medications Medication Instructions Recorded Confirmed Last Taken Haloperidol [Haldol] 5 mg PO BID 09/11/13 02/12/17 Unknown Allergies Allergy/AdvReac Type Severity Reaction Status Date / Time shellfish derived Allergy Swelling Verified 09/11/13 13:41 ED Review of Systems ROS: Stated complaint: MH Other details as noted in HPI Comment: All other systems reviewed and negative ED Past Medical Hx - Past Medical History Hx Psychiatric Treatment: Yes (bipolar, schizo) - Surgical History Past Surgical History?: No - Social History Smoking Status: Never Smoker Substance Use Type: None - Medications Home Medications: Home Medications Medication Instructions Recorded Confirmed Last Taken Type Haloperidol [Haldol] 5 mg PO BID 09/11/13 02/12/17 Unknown History ED Physical Exam - General Limitations: No Limitations General appearance: alert, in no apparent distress - Head Head exam: Present: atraumatic, normocephalic - Eye Eye exam: Present: normal appearance - ENT ENT exam: Present: mucous membranes moist - Neck Neck exam: Present: normal inspection - Respiratory Respiratory exam: Present: normal lung sounds bilaterally. Absent: respiratory distress - Cardiovascular Cardiovascular Exam: Present: regular rate, normal rhythm. Absent: systolic murmur, diastolic murmur, rubs, gallop - GI/Abdominal GI/Abdominal exam: Present: soft, normal bowel sounds - Rectal Rectal exam: Present: deferred - Extremities Exam Extremities exam: Present: normal inspection - Back Exam Back exam: Present: normal inspection - Neurological Exam Neurological exam: Present: alert, oriented X3 - Psychiatric Psychiatric exam: Present: normal affect, normal mood - Skin Skin exam: Present: warm, dry, intact, normal color. Absent: rash ED Course Vital Signs 07/09/17 07/10/17 23:45 04:12 Temperature 97.0 F L 97.6 F Pulse Rate 117 H 133 H Respiratory 18 16 Rate Blood Pressure 150/92 Blood Pressure 136/89 [Left] O2 Sat by Pulse 99 99 Oximetry ED Medical Decision Making - Lab Data Result diagrams: 07/10/17 00:04 07/10/17 00:04 - Medical Decision Making Patient is medically cleared at this time at 646 and will be placed on a 1013 patient is waiting for placement Critical care attestation.: If time is entered above; I have spent that time in minutes in the direct care of this critically ill patient, excluding procedure time. ED Disposition Clinical Impression: Suicidal ideation, Acute (undifferentiated) schizophrenia Disposition: DC/TX-70 ANOTHER TYPE HLTHCARE Is pt being admited?: No Does the pt Need Aspirin: No Condition: Stable Referrals: PRIMARY CARE, [Primary Care Provider] - 3-5 Days
--- NOTE | 2017-07-11 12:27 | Consultation ---
History of Present Illness - Reason for Consult Consult date: 07/11/17 Reason for consult: Mental Health Evaluation Requesting physician: JANET BEARD - Chief Complaint Chief complaint: "I will disappear" - History of Present Psychiatric Illness Patient is a 46-year-old male with a past medical history of hernia who is presenting with suicidal ideations. This patient is known to me. Today patient is calm, cooperative, but disorganized during the assessment. He stated that he is experiencing voices telling him that he will "disappear soon. " He stated that this scares him and he becomes suicidal. He stated that he was suicidal on admission, but denies that now. He does admit to continuous AH's that want go away. He had to be redirected several times because he was tangent during the interview. He stated that he receive the Invega injection monthly, with the last admin 2 weeks ago by [facility] ([facility]) per the patient. He denies recreational drug use and alcohol consumption. Medications and Allergies Allergies Allergy/AdvReac Type Severity Reaction Status Date / Time shellfish derived Allergy Swelling Verified 09/11/13 13:41 Home Medications Medication Instructions Recorded Confirmed Last Taken Type Haloperidol [Haldol] 5 mg PO BID 09/11/13 02/12/17 Unknown History Past psychiatric history - Past Medical History Past Medical History: No medical history Past Surgical History: No surgical history - past Psychiatric treatment and history Psych: Schizophrenia psychiatric treatment history: Multiple inpatient psy settings. Denies a fam psy hx. - Social History Social history: other ([facility] at a [facility]) Mental Status Exam - Vital signs Last Vital Signs Temp 98.8 F 07/10/17 11:15 Pulse 80 07/10/17 11:15 Resp 18 07/10/17 11:30 BP 96/72 07/10/17 11:15 Pulse Ox 98 07/10/17 11:30 - Exam Narrative exam: MSE: Appearance: calm, cooperative, disheveled Behavior: good eye contact Speech: regular rate and tone Mood: "okay" Affect: congruent to mood Thought Process: tangential Thought Content: denies SI/HI's and VH's, disorganized Motor Activity: ambulatory Cognition: A/O x 3 Insight: poor Judgment: poor Results Result Diagrams: 07/10/17 00:04 07/10/17 00:04 All other labs normal. Assessment and Plan Assessment and plan: Impression: Hx of Schizophrenia. Today patient is calm, cooperative, but disorganized during the assessment. DDx: R/O Bipolar, R/O Shizoaffective Recommendation/Plan: Continue 1013 with placement to inpatient psy services. Start Zyprexa 5 mg PO HS for psychosis. Discussed possible metabolic side effects of Invega with patient. Contact [facility] to determine patient's last Invega injection.
--- NOTE | 2017-07-12 09:53 | Progress Note ---
Subjective - Reason for Consult Consult date: 07/12/17 Reason for consult: Psychiatry Follow-up - Chief Complaint Chief complaint: "I am not sure if I will disappear" Patient is a 46-year-old male with a past medical history of hernia who is presenting with suicidal ideations. Today the patient is calm and cooperative during the assessment. He stated that he isn't sure if he will "disappear" per yesterday's interview. He stated that the voices have "decreased " but afraid they may return. He denies SI/HI's and VH's. He denies any side effects of his medication. Mental Status Exam - Vital signs Last Vital Signs Temp 98.2 F 07/11/17 20:44 Pulse 63 07/11/17 20:44 Resp 18 07/11/17 21:29 BP 124/86 07/11/17 20:44 Pulse Ox 98 07/11/17 20:44 - Exam Narrative exam: MSE: Appearance: calm, cooperative, disheveled Behavior: good eye contact Speech: regular rate and tone Mood: "okay" Affect: congruent to mood Thought Process: tangential Thought Content: denies SI/HI's and VH's, delusional Motor Activity: ambulatory Cognition: A/O x 3 Insight: poor Judgment: poor Assessment and Plan mpression: Hx of Schizophrenia. Today patient is calm, cooperative, but disorganized during the assessment. DDx: R/O Bipolar, R/O Schizoaffective DO Recommendation/Plan: Continue 1013 with placement to inpatient psy services. Continue Zyprexa 5 mg PO HS for psychosis. Discussed possible metabolic side effects of Invega with patient. Contact TERRY to determine patient's last Invega injection.
--- NOTE | 2017-07-14 10:16 | Progress Note ---
Subjective - Reason for Consult Consult date: 07/14/17 Reason for consult: Psychiatry Follow-up - Chief Complaint Chief complaint: "I still feel the same" Patient is a 46-year-old male with a past medical history of hernia who is presenting with suicidal ideations. Today the patient is calm and cooperative during the assessment. He stated that he still feel like he may "disappear" soon. He stated that the "voices" are still active. He denies SI/HI' s and VH's. He denies any side effects of his medication. Mental Status Exam - Vital signs Last Vital Signs Temp 98.9 F 07/13/17 21:00 Pulse 91 H 07/13/17 21:00 Resp 18 07/13/17 21:00 BP 150/98 07/13/17 21:00 Pulse Ox 96 07/13/17 21:00 - Exam Narrative exam: MSE: Appearance: calm, cooperative, disheveled Behavior: good eye contact Speech: regular rate and tone Mood: "okay" Affect: congruent to mood Thought Process: tangential Thought Content: denies SI/HI's and VH's, delusional Motor Activity: ambulatory Cognition: A/O x 3 Insight: poor Judgment: poor Assessment and Plan mpression: Hx of Schizophrenia. Today patient is calm, cooperative, but delusional during the assessment. DDx: R/O Bipolar, R/O Schizoaffective DO Recommendation/Plan: Continue 1013 with placement to inpatient psy services. Modify Zyprexa to 5 mg PO BID for psychosis. Discussed possible metabolic side effects of Zyprexa with patient.
--- NOTE | 2017-07-15 10:14 | Progress Note ---
Subjective - Reason for Consult Consult date: 07/15/17 Reason for consult: Psychiatry Follow-up - Chief Complaint Chief complaint: "I think I may disintegrate" Patient is a 46-year-old male with a past medical history of hernia who is presenting with suicidal ideations. Today the patient is calm and cooperative during the assessment. He stated that he may "disintegrate." He could not explain why he feels that way. He stated that the voices has "decreased." He denies SI/HI's and VH's. Per the staff, the patient has been completing his ADL's. He denies any side effects of his medication. Mental Status Exam - Vital signs Last Vital Signs Temp 98 F 07/14/17 20:00 Pulse 87 07/14/17 20:00 Resp 18 07/14/17 20:00 BP 116/81 07/14/17 20:00 Pulse Ox 98 07/14/17 20:00 - Exam Narrative exam: MSE: Appearance: calm, cooperative, disheveled Behavior: good eye contact Speech: regular rate and tone Mood: "okay" Affect: congruent to mood Thought Process: circumstantial Thought Content: denies SI/HI's and VH's, delusional Motor Activity: ambulatory Cognition: A/O x 3 Insight: variable Judgment: variable Assessment and Plan mpression: Hx of Schizophrenia. Today patient is calm, cooperative, but delusional during the assessment. DDx: R/O Bipolar, R/O Schizoaffective DO Recommendation/Plan: Continue [address] [facility] pending transport time. Continue Zyprexa to 5 mg PO BID for psychosis. Discussed possible metabolic side effects of Zyprexa with patient.
[2017-07-15 13:15] VITALS: BP 154/94
== END 2017-07-15 16:18 | disposition other institution (70) ==
LOC: EEVIPCON 23:45 → ED 23:45
DX: F23 Brief psychotic disorder (principal); F31.9 Bipolar disorder, unspecified; Z79.899 Other long term (current) drug therapy; Z91.013 Allergy to seafood
CPT/HCPCS: 36415; 80048; 80307; 80320; 81001; 85025; 99285; G0480

== ENCOUNTER 2019-01-14 20:06 | Emergency (ER) | payer MEDICARE ==
[2019-01-14 20:53] LABS: Basophils % (Auto) 0.5 % (0.0-1.8); Eosinophils # (Auto) 0.1 K/mm3 (0.0-0.4); Eosinophils % (Auto) 1.6 % (0.0-4.3); Hematocrit 42.5 % (35.5-45.6); Hemoglobin 14.3 gm/dl (11.8-15.2); Lymphocytes # (Auto) 1.2 K/mm3 (1.2-5.4); Lymphocytes % (Auto) 17.9 % (13.4-35.0); Mean Corpuscular HGB Conc 34 % (32-34); Mean Corpuscular Volume 82 fl (84-94); Monocytes % (Auto) 14.8 % (0.0-7.3); Platelet Count 236 K/mm3 (140-440); Red Blood Count 5.18 M/mm3 (3.65-5.03); Red Cell Distribution Width 15.1 % (13.2-15.2)
[2019-01-14 21:11] LABS: BUN/Creatinine Ratio 10; Blood Urea Nitrogen 11 mg/dL (9-20); Calcium 9.5 mg/dL (8.4-10.2); Hemolysis Index 15
--- NOTE | 2019-01-14 23:22 | Emergency Department Report ---
ED Psych HPI - General Chief Complaint: Psych Stated Complaint: MH Time Seen by Provider: 01/14/19 22:26 Source: patient Mode of arrival: Ambulatory - History of Present Illness Initial Comments: Patient is a 48-year-old male with past medical history of schizophrenia who is presenting with disorganized thoughts flat affect and auditory hallucinations. Patient is disheveled and confused prompting people have him come to the emergency department. Patient is hoping to be sent to a mental health facility. When asked again the patient Y cane to the hospital he states he is here voices. Patient states voices are telling him that he is homosexual even though he is not. Patient seems quite bothered by this. Patient denies any homicidal or suicidal ideations at this time. - Related Data Home Medications Medication Instructions Recorded Confirmed Last Taken Haloperidol [Haldol] 5 mg PO BID 09/11/13 07/13/17 Unknown Allergies Allergy/AdvReac Type Severity Reaction Status Date / Time shellfish derived Allergy Swelling Verified 09/11/13 13:41 ED Review of Systems ROS: Stated complaint: MH Other details as noted in HPI Comment: All other systems reviewed and negative ED Past Medical Hx - Past Medical History Previous Medical History?: Yes Hx Psychiatric Treatment: Yes (bipolar, schizo) - Social History Smoking Status: Unknown if ever smoked Substance Use Type: None - Medications Home Medications: Home Medications Medication Instructions Recorded Confirmed Last Taken Type Haloperidol [Haldol] 5 mg PO BID 09/11/13 07/13/17 Unknown History ED Physical Exam - General Limitations: No Limitations General appearance: alert, in no apparent distress - Head Head exam: Present: atraumatic, normocephalic - Eye Eye exam: Present: normal appearance - ENT ENT exam: Present: mucous membranes moist - Neck Neck exam: Present: normal inspection - Respiratory Respiratory exam: Present: normal lung sounds bilaterally. Absent: respiratory distress, wheezes, rales, rhonchi - Cardiovascular Cardiovascular Exam: Present: regular rate, normal rhythm. Absent: systolic murmur, diastolic murmur, rubs, gallop - GI/Abdominal GI/Abdominal exam: Present: soft, normal bowel sounds. Absent: distended, tenderness, guarding, rebound - Rectal Rectal exam: Present: deferred - Extremities Exam Extremities exam: Present: normal inspection - Back Exam Back exam: Present: normal inspection - Neurological Exam Neurological exam: Present: alert, oriented X3 - Psychiatric Psychiatric exam: Present: normal affect, normal mood - Skin Skin exam: Present: warm, dry, intact, normal color. Absent: rash ED Course Vital Signs 01/14/19 01/14/19 20:21 20:28 Temperature 98.6 F 98.6 F Pulse Rate 110 H 114 H Respiratory 18 18 Rate Blood Pressure 151/77 151/77 O2 Sat by Pulse 96 98 Oximetry ED Medical Decision Making - Lab Data Result diagrams: 01/14/19 20:35 01/14/19 20:35 Lab Results 01/14/19 01/14/19 01/14/19 Range/Units 20:35 20:35 20:35 WBC (4.5-11.0) K/mm3 RBC (3.65-5.03) M/mm3 Hgb (11.8-15.2) gm/dl Hct (35.5-45.6) % MCV (84-94) fl MCH (28-32) pg MCHC (32-34) % RDW (13.2-15.2) % Plt Count (140-440) K/mm3 Lymph % (Auto) (13.4-35.0) % [place] % (Auto) (0.0-7.3) % Eos % (Auto) (0.0-4.3) % Baso % (Auto) (0.0-1.8) % Lymph # (1.2-5.4) K/mm3 [place] # (0.0-0.8) K/mm3 Eos # (0.0-0.4) K/mm3 Baso # (0.0-0.1) K/mm3 Seg Neutrophils % (40.0-70.0) % Seg Neutrophils # (1.8-7.7) K/mm3 Sodium 134 L (137-145) mmol/L Potassium 4.1 (3.6-5.0) mmol/L Chloride 99.2 (98-107) mmol/L Carbon Dioxide 20 L (22-30) mmol/L Anion Gap 19 mmol/L BUN 11 (9-20) mg/dL Creatinine 1.1 (0.8-1.5) mg/dL Estimated GFR > 60 ml/min BUN/Creatinine Ratio 10 % Glucose 119 H (75-100) mg/dL POC Glucose (70-105) Calcium 9.5 (8.4-10.2) mg/dL Salicylates < 0.3 L (2.8-20.0) mg/dL Acetaminophen < 5.0 L (10.0-30.0) ug/mL Plasma/Serum Alcohol (0-0.07) % 01/14/19 01/14/19 01/14/19 Range/Units 20:35 20:35 22:38 WBC 6.8 (4.5-11.0) K/mm3 RBC 5.18 H (3.65-5.03) M/mm3 Hgb 14.3 (11.8-15.2) gm/dl Hct 42.5 (35.5-45.6) % MCV 82 L (84-94) fl MCH 28 (28-32) pg MCHC 34 (32-34) % RDW 15.1 (13.2-15.2) % Plt Count 236 (140-440) K/mm3 Lymph % (Auto) 17.9 (13.4-35.0) % [place] % (Auto) 14.8 H (0.0-7.3) % Eos % (Auto) 1.6 (0.0-4.3) % Baso % (Auto) 0.5 (0.0-1.8) % Lymph # 1.2 (1.2-5.4) K/mm3 [place] # 1.0 H (0.0-0.8) K/mm3 Eos # 0.1 (0.0-0.4) K/mm3 Baso # 0.0 (0.0-0.1) K/mm3 Seg Neutrophils % 65.2 (40.0-70.0) % Seg Neutrophils # 4.4 (1.8-7.7) K/mm3 Sodium (137-145) mmol/L Potassium (3.6-5.0) mmol/L Chloride (98-107) mmol/L Carbon Dioxide (22-30) mmol/L Anion Gap mmol/L BUN (9-20) mg/dL Creatinine (0.8-1.5) mg/dL Estimated GFR ml/min BUN/Creatinine Ratio % Glucose (75-100) mg/dL POC Glucose 95 (70-105) Calcium (8.4-10.2) mg/dL Salicylates (2.8-20.0) mg/dL Acetaminophen (10.0-30.0) ug/mL Plasma/Serum Alcohol < 0.01 (0-0.07) % - Medical Decision Making Patient is medically cleared this time for psychiatric placement. Critical care attestation.: If time is entered above; I have spent that time in minutes in the direct care of this critically ill patient, excluding procedure time. ED Disposition Clinical Impression: Acute psychosis, Encounter for psychiatric assessment Disposition: DC/TX-65 PSY HOSP/PSY UNIT Is pt being admited?: No Does the pt Need Aspirin: No Condition: Stable Referrals: PRIMARY CARE, [Primary Care Provider] - 3-5 Days Time of Disposition: 23:21
[2019-01-15] MEDS ORDERED: HALDOL IM ONE (01:09)
[2019-01-15] MEDS ORDERED: BENADRYL IM ONE (01:09)
[2019-01-15] MEDS ORDERED: ATIVAN IM ONE (01:09)
[2019-01-15] MEDS ORDERED: ATIVAN ONE (01:12)
[2019-01-15] MEDS ORDERED: HALDOL ONE (01:12)
[2019-01-15] MEDS ORDERED: BENADRYL ONE (01:13)
[2019-01-15 04:59] LABS: Bilirubin,Urine NEG (Negative); Blood,Urine NEG (Negative); Color,Urine Colorless (Yellow); Protein,Urine <15 mg/dL mg/dL (Negative); Urobilinogen,Urine < 2.0 mg/dL (<2.0)
[2019-01-15 05:06] LABS: Amphetamine Screen,Urine PRESUMPTIVE NEGATIVE; Benzodiazepines Screen,Urine PRESUMPTIVE NEGATIVE; Cannabinoid Screen,Urine PRESUMPTIVE NEGATIVE; Cocaine Screen,Urine PRESUMPTIVE NEGATIVE; Methadone Screen,Urine PRESUMPTIVE NEGATIVE; Opiate Screen,Urine PRESUMPTIVE NEGATIVE
[2019-01-15] MEDS ORDERED: GEODON IM ONE (08:43)
[2019-01-15] MEDS ORDERED: WATER FOR INJ Sterile (PF) 10 ML ONE (08:49)
--- NOTE | 2019-01-15 09:21 | Consultation ---
History of Present Illness - Reason for Consult Consult date: 01/15/19 Reason for consult: Mental Health Evaluation Requesting physician: JANET BEARD - Chief Complaint Chief complaint: "i'm not well" - History of Present Psychiatric Illness 48 y.o. AA male who presented to the ER for acute psychosis. This patient is known to me. Today the patient was tangent during the assessment. He had to be redirected several times to keep him on topic. Most of his answers to questions were not logical. This patient is known to receiove the monthly Inbega injection. At this time, the patient is poor historian. No gestures of SI/HI's. Medications and Allergies Allergies Allergy/AdvReac Type Severity Reaction Status Date / Time shellfish derived Allergy Swelling Verified 09/11/13 13:41 Home Medications Medication Instructions Recorded Confirmed Last Taken Type Haloperidol [Haldol] 5 mg PO BID 09/11/13 01/15/19 Unknown History Past psychiatric history - Past Medical History Past Medical History: No medical history Past Surgical History: No surgical history - past Psychiatric treatment and history psychiatric treatment history: Several inpatient psy settings. Unable to obtain a [facility] psy hx. - Social History Social history: lives with family Mental Status Exam - Vital signs Last Vital Signs Temp 98.1 F 01/15/19 07:59 Pulse 73 01/15/19 07:59 Resp 18 01/15/19 07:59 BP 102/76 01/15/19 07:59 Pulse Ox 99 01/15/19 07:59 - Exam Narrative exam: MSE: Appearance: calm, cooperative, disheveled Behavior: good eye contact Speech: regular rate and tone Mood: "okay" Affect: congruent to mood Thought Process: tangential, disorganized Thought Content: denies SI/HI's and VH's Motor Activity: ambulatory Cognition: A/O x 3 Insight: poor Judgment: poor Results Result Diagrams: 01/14/19 20:35 01/14/19 20:35 Abnormal lab results 01/14/19 01/14/19 01/14/19 Range/Units 20:35 20:35 20:35 RBC (3.65-5.03) M/mm3 MCV (84-94) fl [place] % (Auto) (0.0-7.3) % [place] # (0.0-0.8) K/mm3 Sodium 134 L (137-145) mmol/L Carbon Dioxide 20 L (22-30) mmol/L Glucose 119 H (75-100) mg/dL Ur Specific [place] (1.003-1.030) Salicylates < 0.3 L (2.8-20.0) mg/dL Acetaminophen < 5.0 L (10.0-30.0) ug/mL 01/14/19 01/15/19 Range/Units 20:35 04:24 RBC 5.18 H (3.65-5.03) M/mm3 MCV 82 L (84-94) fl [place] % (Auto) 14.8 H (0.0-7.3) % [place] # 1.0 H (0.0-0.8) K/mm3 Sodium (137-145) mmol/L Carbon Dioxide (22-30) mmol/L Glucose (75-100) mg/dL Ur Specific [place] 1.002 L (1.003-1.030) Salicylates (2.8-20.0) mg/dL Acetaminophen (10.0-30.0) ug/mL All other labs normal. Assessment and Plan Assessment and plan: Impression: Unspecified Psychosis. Today patient was calm, but tangent during the assessment. DDx: Schizophrenia Recommendation/Plan: Continue 1013 and start Invega 3 mg PO HS for psychosis and Cogentin 0.5 mg PO HS for EPS prevention. Attempted to discuss possible metabolic side effects of Invega with patient. The patient is known to receive the monthly Invega injection. Dispo: The patient was referred to inpatient psy services. Will staff with Dr Liliana Ahmadi.
[2019-01-15] MEDS: COGENTIN PO SCH (21:45)
[2019-01-15] MEDS: INVEGA PO SCH (21:45)
--- NOTE | 2019-01-16 09:55 | Progress Note ---
Subjective - Reason for Consult Consult date: 01/16/19 Reason for consult: Psychiatry Follow-up - Chief Complaint Chief complaint: "The patient was whispering" 48 y.o. AA male who presented to the ER for acute psychosis. This patient is known to me. Today the patient was calm during the assessment. He whispered when asked questions. He appeared to be preoccupied. The psy assessment could not be completed. No gestures of SI/HI's. Mental Status Exam - Vital signs Last Vital Signs Temp 98.2 F 01/16/19 08:15 Pulse 86 01/16/19 08:15 Resp 18 01/16/19 08:15 BP 137/65 01/16/19 08:15 Pulse Ox 98 01/16/19 08:15 - Exam Narrative exam: unable to complete the MSE because of the patient's condition. Assessment and Plan Impression: Unspecified Psychosis. Today patient was calm, but tangent during the assessment. DDx: Schizophrenia Recommendation/Plan: Continue 1013 and Invega 3 mg PO HS for psychosis and Cogentin 0.5 mg PO HS for EPS prevention. Attempted to discuss possible metabolic side effects of Invega with patient. The patient is known to receive the monthly Invega injection. Dispo: The patient was referred to inpatient psy services. Will staff with Dr Liliana Ahmadi.
[2019-01-16] MEDS ORDERED: GEODON IM ONE (13:58)
[2019-01-16] MEDS ORDERED: ATIVAN ONE (13:58)
[2019-01-16] MEDS ORDERED: WATER FOR INJ Sterile (PF) 0 ML ONE (13:59)
[2019-01-16] MEDS ORDERED: BENADRYL IM ONE (14:00)
[2019-01-16] MEDS ORDERED: ATIVAN IM ONE (14:00)
[2019-01-16] MEDS: INVEGA PO SCH (22:06)
[2019-01-16] MEDS: COGENTIN PO SCH (22:06)
--- NOTE | 2019-01-17 13:36 | Progress Note ---
Subjective - Reason for Consult Consult date: 01/17/19 Reason for consult: Psychiatric Follow-up Evaluation - Chief Complaint Chief complaint: Patient is selectively mute Patient is a 48 y.o. AA male who presented to the ER for acute psychosis. This patient is known to me. Today the patient is calm during the assessment. Patient is selectively mute. He refuses to answer any questions. Several attempts were made to assess patient but he only stares blankly at provider. Patient defecated in room on the floor. He appears to be internally preoccupied. The psy assessment could not be completed. No gestures of SI/HI's. Mental Status Exam - Vital signs Last Vital Signs Temp 98.9 F 01/17/19 10:05 Pulse 88 01/17/19 10:05 Resp 20 01/17/19 10:05 BP 140/93 01/17/19 10:05 Pulse Ox 100 01/17/19 10:05 - Exam Narrative exam: Unable to complete the MSE because of the patient's condition. Assessment and Plan Impression: Unspecified Psychosis. Today the patient is calm. Patient is selectively mute, provider unable to assess. Patient will only stare blankly at provider. DDx: Schizophrenia Recommendation/Plan: 1. Continue 1013. 2. Continue Invega 3 mg PO HS for psychosis and Cogentin 0.5 mg PO HS for EPS prevention. Attempted to discuss possible metabolic side effects of Invega with patient. The patient is known to receive the monthly Invega injection. Disposition: The patient was referred to inpatient psychiatric services. Will staff with Dr Liliana Ahmadi.
[2019-01-17] MEDS: COGENTIN PO SCH (22:05)
[2019-01-17] MEDS: INVEGA PO SCH (22:05)
--- NOTE | 2019-01-18 14:34 | Progress Note ---
Subjective - Reason for Consult Consult date: 01/18/19 Reason for consult: Psychiatry Follow-up - Chief Complaint Chief complaint: i want to watch TV" Patient is a 48 y.o. AA male who presented to the ER for acute psychosis. This patient is known to me. Today the patient is calm, but tangent during the assessment. He was observed pacing in the seclusion room. His answers to most questions were not logical. He denies SI/HI's and VH's. He would not confirm or deny AH's. No indications of side effects of his medication. Mental Status Exam - Vital signs Last Vital Signs Temp 97.9 F 01/18/19 10:59 Pulse 90 01/18/19 10:59 Resp 20 01/18/19 10:59 BP 143/100 01/18/19 10:59 Pulse Ox 97 01/18/19 10:59 - Exam Narrative exam: MSE: Appearance: calm, cooperative, disheveled Behavior: good eye contact Speech: regular rate and tone Mood: preoccupied Affect: congruent to mood Thought Process: tangential Thought Content: denies SI/HI's and VH's Motor Activity: pacing Cognition: A/O x 3 Insight: poor Judgment: poor Assessment and Plan Impression: Unspecified Psychosis. Today patient was calm, but still tangent during the assessment. DDx: Schizophrenia Recommendation/Plan: Continue 1013 and Invega 3 mg PO HS for psychosis and Cogentin 0.5 mg PO HS for EPS prevention. Attempted to discuss possible metabolic side effects of Invega with patient. The patient is known to receive the monthly Invega injection. Dispo: The patient was accepted at [facility] for inpatient psy services. Staffed with Dr Liliana Ahmadi.
[2019-01-18 14:35] VITALS: BP 144/86
== END 2019-01-18 17:38 ==
LOC: EEVIPCON 20:06 → ED 20:06
DX: F31.9 Bipolar disorder, unspecified (principal); F20.9 Schizophrenia, unspecified; Z79.899 Other long term (current) drug therapy; Z91.013 Allergy to seafood
CPT/HCPCS: 36415; 80048; 80307; 81001; 82962; 85025; 96372; 99285; J1200; J1630; J2060; J3486; 80320; G0480